=== PATIENT | female | born 2005 | race Caucasian/White ===

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

== ENCOUNTER → 2023-01-13 17:33 | Outpatient (CLI) | payer OTHER, SELFPAY | PROVIDERS: PCP Naturopath; Visit Provider Registered Nurse | DX: J02.9 Acute pharyngitis, unspecified (principal) | CPT/HCPCS: 87070 ==

== ENCOUNTER 2025-01-12 10:29 | Emergency (ER) | payer OTHER, SELFPAY ==
[2025-01-12 10:30] VITALS: BP 150/85; PULSE 68; RESP 14; TEMP 36.6; O2SAT 99; BMI 34.3
--- NOTE | 2025-01-12 10:33 | ED.GENADULT ---
HPI - General Adult General Chief complaint: Extremity Injury, Lower Stated complaint: Left foot pain x 10 days Time Seen by Provider: 01/12/25 10:31 Source: patient, RN notes reviewed and old records reviewed Mode of arrival: Ambulatory Limitations: no limitations History of Present Illness HPI narrative: 19-year-old female no reported medical issues with complaint of left foot pink particularly the ankle for the past 10 days. Patient states she had a trip and fall and injured her ankle/foot. She states most of the pain has been lateral ankle talar region. She was noted increasing bruising and swelling slowly over time that extends down to the toes. She states was very painful to weightbear with the 1st 2 or 3 days still uncomfortable she describes 8/10 but states she can weightbear but uncomfortably so. Denies any numbness tingling or weakness. She notes plantar flexion as particularly painful. Patient states no other injuries. States no daily medications. Denies any major surgeries. No known drug allergies. Does use tobacco daily, no regular alcohol, no recreational or IV drugs. Patient has been traveling and just recently returned came to be evaluated as her symptoms have not significantly improved. Related Data Home Medications ?Medication ?Instructions ?Recorded ?Confirmed levetiracetam 250 mg tablet 250 mg PO BID 01/13/23 08/30/24 (Horace) Previous Rx's ?Medication ?Instructions ?Recorded silver sulfadiazine 1 % topical 1 applic topical BID PRN Skin Burn 08/30/24 cream #50 grams Allergies Allergy/AdvReac Type Severity Reaction Status Date / Time No Known Drug Allergies Allergy Unverified 01/12/25 10:35 Review of Systems Review of Systems ROS Unobtainable: All systems reviewed & are unremarkable except as noted in HPI and below Patient History Social History Smoking Status: Unknown if ever smoked Exam Narrative Exam Narrative: GENERAL: Alert and oriented x three, mild distress HEENT: Head normocephalic, atraumatic, EOMI, pupils reactive, face symmetric, moist mucous membranes NECK: Supple, full range of motion EXTREMITIES: Normal range of motion, patient was tenderness over the lateral malleolus, minimal tenderness over the medial malleolus. Patient has swelling, some edema and ecchymosis of the dorsum of the foot and extending to the toes. Patient was nontender over her toes, metatarsals and calcaneus. Neurovascularly intact. Cap refills less than 2 seconds. Normal sensation throughout. Patient was increased pain with plantar flexion and holds her foot a little bit more and dorsiflexion. NEUROLOGICAL: Cranial nerves II through XII grossly intact. Moving all extremities SKIN: Warm, dry, no petechiae, no rashes or lesions. Initial Vital Signs Initial Vital Signs: Vital Signs Temperature 98 F 01/12/25 10:30 Pulse Rate 68 01/12/25 10:30 Respiratory Rate 14 01/12/25 10:30 Blood Pressure 150/85 H 01/12/25 10:30 Pulse Oximetry 99 01/12/25 10:30 Oxygen Delivery Method Room Air 01/12/25 10:30 Course Orders Ordered: ED Orders 01/12/25 10:35 XR ankle LT min 3V Stat XR foot LT min 3V Stat Vital Signs Vital signs: Vital Signs - 8 hr 01/12/25 10:30 Temperature 98 F Pulse Rate 68 Respiratory Rate 14 Blood Pressure 150/85 H Pulse Oximetry 99 Oxygen Delivery Method Room Air Medical Decision Making [facility] Narrative Medical decision making narrative: 19-year-old female had a trip and fall injuring her ankle proximally 10 days ago she was little bit more tender over the fibula or lateral malleolus. Has a obvious swelling ecchymosis appears older she notes it has been sort of moving down over foot. She was some very mild pain of her foot but with the amount of bruising ankle and foot x-ray were obtained and meets criteria by [place] ankle rules as well. Foot x-ray question small bony avulsion of the lateral base of the cuboid bone versus longstanding ossific density. Favor avulsion. No other fractures or dislocations. No suspicious bony lesions tibiotalar joint effusion Achilles tendon appears normal. Ankle x-ray no acute bony abnormality or significant effusion. Spoke with patient formal reports are not crossing over. Reviewed prelim spacing of the ankle mortise appears narrow but no obvious fractures appreciated. Patient is comfortable returning home we will place in a splint toe-touch weight-bearing and patient to call to follow up in the next several hours to follow up for formal reports. We will give orthopedic surgery referral if needed. If x-rays are negative patient is to follow up primary care. Patient is aware that my prelim read I do not see any obvious fracture but do not have formal read from Radiology she was aware there can still be a fracture in his going to call back for formal read. 1415: Hold an updated patient regarding her findings. She will reach out to orthopedic surgery for follow-up. We will also cc orthopedic surgery to faciliate follow up. Discharge Plan Departure Patient Disposition: Home Clinical Impression: Ankle sprain and strain Instructions: DI for Ankle Sprain Activity Restrictions/Additional Instructions: Your formal x-ray reports are not crossing over, I do not see an obvious fracture but please call back around 2:00 p.m. today to follow up the formal read. I will try to call if they return sooner than that. If you are xray ends up showing a positive fracture, please follow up with Orthopedic surgery. Contacts included below. If x-ray is negative you can continue to use the orthopedic shoe and crutches as needed but follow up with primary care. You can use acetaminophen and/or ibuprofen as needed for pain. Toe-touch weightbear, use crutches as needed. Splint Care: Keep splint clean and dry. Elevated affected body part to decrease swelling. OK to use ice pack on the affected body part. Use for 15-20 minutes each time, for 5-6x per day. If you develop worsening pain, numbness, tingling, discoloration of the affected body part, loosen the splint by loosening the MERRICK wrap, and either see your doctor for an urgent re-assessment, or return to the Emergency Department. Return to the Emergency Department for any new or worsening symptoms. Prescriptions: No Action silver sulfadiazine 1 % cream 1 applic topical BID PRN (Reason: Skin Burn) Qty: 50 0RF Rx Instructions: apply a 1.5 mm thickness levetiracetam [Keppra] 250 mg tablet 250 mg PO BID Referrals: Nemo Salvador MD [Primary Care Provider, Family Practice] Yazmin Oneil DO [Physician, Orthopedic Surgery] Stand Alone Forms: Patient Portal/API
--- NOTE | 2025-01-12 10:35 | DI.RAD.S_ITS ---
PROCEDURE: XR ANKLE LT MIN 3V INDICATIONS: fall TECHNIQUE: 3 views of the ankle were acquired. COMPARISON: None. FINDINGS: Bones: No fractures or dislocations. Ankle mortise is normally aligned. No suspicious bony lesions. Soft tissues: No tibiotalar joint effusion. Achilles tendon appears normal. IMPRESSION: No acute bony abnormality or significant effusion. Dictated by: Julius Navarro M.D. on 01/12/2025 at 10:55 Approved by: Julius Navarro M.D. on 01/12/2025 at 10:57
--- NOTE | 2025-01-12 10:35 | DI.RAD.S_ITS ---
PROCEDURE: XR FOOT LT MIN 3V INDICATIONS: fall TECHNIQUE: 3 views of the foot were acquired. COMPARISON: [facility], CR, XR ANKLE LT MIN 3V, 01/12/2025, 10:31. FINDINGS: Bones: Question small bony avulsion off of the lateral base of the cuboid bone versus longstanding ossific density. Favor avulsion. No other fractures or dislocations. No suspicious bony lesions. Soft tissues: No tibiotalar joint effusion. Achilles tendon appears normal. IMPRESSION: Question small bony avulsion off the lateral base of the cuboid bone. Recommend clinical correlation for presence or absence of focal point tenderness. Dictated by: Julius Navarro M.D. on 01/12/2025 at 10:57 Approved by: Julius Navarro M.D. on 01/12/2025 at 10:58
--- NOTE | 2025-01-12 10:51 | PC.NURSE ---
initial injury about 10days ago, significant pain with ambulation and weight bearing. Swelling noted and bruising noted to toes. Reports pressure and tingling in foot. + pedal pulses
== END 2025-01-12 11:35 | disposition home or self-care (01) ==
PROVIDERS: Emergency Provider Emergency Medicine; PCP Family Medicine
DX: S93.402A Sprain of unspecified ligament of left ankle, initial encounter (principal); S96.912A Strain of unspecified muscle and tendon at ankle and foot level, left foot, initial encounter; W01.0XXA Fall on same level from slipping, tripping and stumbling without subsequent striking against object, initial encounter; Y93.9 Activity, unspecified
CPT/HCPCS: 29515; 73610; 73630; 99283